=== PATIENT | male | born 1980 | race Caucasian/White ===

== ENCOUNTER 2023-10-10 09:21 | Outpatient (OUT) | payer BC, SELFPAY ==
[2023-10-11 09:38] LABS: HBsAg Screen Negative (Negative); HCV Ab Non Reactive (Non Reactive); HIV Ab/p24 Ag Screen Non Reactive (Non Reactive); Hep A Ab, IgM Negative (Negative); Hep B Core Ab, IgM Negative (Negative)
[2023-10-11 12:25] LABS: Rapid Plasma Reagin, Quant Non Reactive titer (NonRea<1:1)
[2023-10-14 22:07] LABS: Trich vag by NAA Negative (Negative)
== END 2023-10-10 09:22 | disposition home or self-care (01) ==
LOC: LAB 09:24
PROVIDERS: PCP Physician Assistant; Visit Provider Physician Assistant
DX: Z20.2 Contact with and (suspected) exposure to infections with a predominantly sexual mode of transmission (principal)
CPT/HCPCS: 36415; 80074; 86592; 86695; 86696; 87389; 87491; 87591; 87661